=== PATIENT | male | born 1935 | race Caucasian/White ===

== ENCOUNTER 2017-03-23 02:42 | Emergency (ER) | payer OTHER ==
[~2017-03-23] VITALS: Ht 172.7 cm; Wt 119.3 kg
--- NOTE | ~2017-03-23 | EKG ---
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
[~2017-03-23 02:42] MED LIST: ABILIFY 2 MG2 MG PO; ACETAMINOPHEN325 M1 PO; ALDACTONE25 MG PO; AUGMENTIN 875875 MG PO; CALCIUM 500 +1 EAC5 PO; CALCIUM 600 +1 EAC1 PO; CARBIDOPA-LEVO1 EA10 PO; CLARITIN10 MG PO; COLACE100 MG PO; COMTAN200 MG PO; CONSTULOSE10 GM/152 PO; COZAAR 25 MG TA25 MG PO; DEPAKOTE125 MG PO; DEPAKOTE500 MG PO; DIVALPROEX SOD500 MG PO; DUONEB 2.5-0.5 M3 ML INH; FERRO-TIME325 MG PO; FISH OIL 1,001000 M2 PO; FISHOIL; FUROSEMIDE 40 M40 M1 PO; K-DUR10 ME1 PO; KEFLEX500 MG PO; KEPPRA 500 MG500 M1 PO; LASIX 40 MG TAB40 M2 PO; LEVAQUIN 500 M500 M2 PO; MAGNESIUM OXID400 MG PO; MILK OF MAGNESIA; MOM PO; MULTI VITAMIN1 EACH PO; NORVASC10 MG PO; NORVASC5 MG PO; NYSTATIN1 EA10 TOP; ONDANSETRON ODT4 MG PO; ORAZINC220 MG PO; OS-CAL 500+D C1 EACH PO; PAXIL10 MG; PEPCID20 MG PO; PROCEL; REMERON15 M1 PO; RISPERDAL 1 MG T1 MG PO; RISPERDAL1 MG/1 ML PO; SEROQUEL XR150 M1 PO; TUMS PO; TYLENOL325 MG PO; VICODIN 5-5001 EACH PO; VITAMIN B-12500 MCG PO; VITAMIN D1000 UNI1 PO; ZANTAC 150MG T150 MG PO; ZYPREXA5 MG PO; ZYRTEC10 M2 PO; [UNRECOGNIZED DRUG - OTHER]
[2017-03-23 03:04] LABS: URINE BILIRUBIN NEGATIVE (Negative); URINE BLOOD NEGATIVE (Negative); URINE COLOR YELLOW; URINE GLUCOSE-RANDOM* NEGATIVE (Negative); URINE KETONES NEGATIVE (Negative); URINE LEUKOCYTES-REFLEX NEGATIVE (Negative); URINE PROTEIN (DIPSTICK) NEGATIVE (Negative); URINE SPECIFIC GRAVITY 1.015 (1.003-1.035); URINE UROBILINOGEN 0.2 E.U./dl (0.2-1.0)
[2017-03-23] MEDS ORDERED: FLEXERIL PO (03:06)
[2017-03-23] MEDS ORDERED: NORCO 5-325 TA1 EACH PO (03:06)
[2017-03-23] MEDS ORDERED: IBUPROFEN 600600 M1 PO (03:06)
[2017-03-23 03:23] LABS: ABSOLUTE NEUTROPHILS 2.7 thou/uL (1.4-8.2); BASOPHILS 0.8 % (0.0-2.0); EOSINOPHILS 3.2 % (0.0-3.0); HEMATOCRIT 37.3 % (42.0-52.0); HEMOGLOBIN 12.9 gm/dL (14.0-18.0); LYMPHOCYTES 40.3 % (24.0-44.0); MANUAL DIFF NO; MCH 33.2 pg (26.0-34.0); MCHC 34.7 g/dL (28.0-37.0); MCV 95.7 fL (80.0-100.0); MONOCYTES 10.6 % (1.0-8.0); PLATELET COUNT 174 thou/uL (150-400); POLYS 45.1 % (36.0-66.0); RBC 3.89 mil/uL (4.50-6.00); RDW 12.5 % (10.5-14.5); WBC 5.9 thou/uL (4.0-11.0)
[2017-03-23 03:33] LABS: ANION GAP 9 mmol/L (7-16); BUN 15 mg/dL (7-18); CALCIUM 8.8 mg/dL (8.5-10.1); CHLORIDE 102 mmol/L (98-107); CO2 28 mmol/L (21-32); CREATININE 1.3 mg/dL (0.7-1.3); GLUCOSE 107 mg/dL (74-106); POTASSIUM 3.9 mmol/L (3.5-5.1); SODIUM 139 mmol/L (136-145)
[2017-03-23 03:36] LABS: APTT 27.5 Seconds (24.5-32.8); PROTIME 10.7 Seconds (9.3-11.4)
[2017-03-23 03:43] LABS: ALBUMIN 2.9 g/dL (3.4-5.0); ALKALINE PHOSPHATASE 105 U/L (46-116); MAGNESIUM 1.9 mg/dL (1.8-2.4); NT-PRO BRAIN NAT PEPTIDE 317 pg/mL (<300); SGOT 17 U/L (15-37); SGPT 13 U/L (30-65); TOTAL BILIRUBIN 0.4 mg/dL (<0.1-1.0); TOTAL PROTEIN 7.1 g/dL (6.4-8.2); TROPONIN-I < 0.04 ng/mL (<0.04-0.07)
== END 2017-03-23 04:25 | disposition home or self-care (01) ==
LOC: ER 02:42
PROVIDERS: Emergency Medicine
DX: R41.82 Altered mental status, unspecified (principal); G20 Parkinson's disease; F02.80 Dementia in other diseases classified elsewhere, unspecified severity, without behavioral disturbance, psychotic disturbance, mood disturbance, and anxiety; F20.89 Other schizophrenia; I10 Essential (primary) hypertension; E78.5 Hyperlipidemia, unspecified; K21.9 Gastro-esophageal reflux disease without esophagitis

== ENCOUNTER 2017-03-28 22:07 | Emergency (ER) | payer OTHER ==
[~2017-03-28] VITALS: Ht 172.7 cm; Wt 120.2 kg
--- NOTE | ~2017-03-28 | EKG ---
[place] [address] 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 03/29/17 09 21 21 Carlitos Vaughn MD, FACC /EPI
[~2017-03-28 22:07] MED LIST changes: +FLEXERIL PO; +IBUPROFEN 600600 M1 PO; +NORCO 5-325 TA1 EACH PO
[2017-03-29 01:18] LABS: CALCIUM 8.6 mg/dL (8.5-10.1); CREATININE 1.2 mg/dL (0.7-1.3); POTASSIUM 4.2 mmol/L (3.5-5.1)
[2017-03-29 01:22] LABS: ALBUMIN 2.5 g/dL (3.4-5.0); TOTAL BILIRUBIN 0.3 mg/dL (<0.1-1.0); TOTAL PROTEIN 6.4 g/dL (6.4-8.2)
[2017-03-29 02:05] LABS: MCH 33.7 pg (26.0-34.0); MCHC 34.2 g/dL (28.0-37.0); MCV 98.5 fL (80.0-100.0); PLATELET COUNT 165 thou/uL (150-400); RBC 3.85 mil/uL (4.50-6.00); RDW 12.7 % (10.5-14.5); WBC 8.4 thou/uL (4.0-11.0)
[2017-03-29 02:13] LABS: MANUAL DIFF YES
[2017-03-29 02:47] LABS: ABSOLUTE NEUTROPHILS 3.3 thou/uL (1.4-8.2); METAMYELOCYTES 1 %; POLYCHROMASIA 1+; TOTAL CELL COUNT 100
[2017-03-29 02:58] LABS: URINE BILIRUBIN NEGATIVE (Negative); URINE BLOOD NEGATIVE (Negative); URINE COLOR YELLOW; URINE GLUCOSE-RANDOM* NEGATIVE (Negative); URINE KETONES 1+ (Negative); URINE LEUKOCYTES-REFLEX NEGATIVE (Negative); URINE PROTEIN (DIPSTICK) NEGATIVE (Negative); URINE SPECIFIC GRAVITY 1.015 (1.003-1.035)
[2017-03-29] MEDS ORDERED: ONDANSETRON HCL4 M2 PO (04:35)
== END 2017-03-29 05:29 | disposition home or self-care (01) ==
LOC: ER 22:07
PROVIDERS: Emergency Medicine
DX: R11.10 Vomiting, unspecified (principal); I10 Essential (primary) hypertension; G20 Parkinson's disease; E78.5 Hyperlipidemia, unspecified; K21.9 Gastro-esophageal reflux disease without esophagitis; F25.9 Schizoaffective disorder, unspecified; G62.9 Polyneuropathy, unspecified; H35.30 Unspecified macular degeneration; K59.09 Other constipation; Z86.2 Personal history of diseases of the blood and blood-forming organs and certain disorders involving the immune mechanism

== ENCOUNTER 2018-04-04 22:45 | Inpatient (IN) | payer OTHER ==
[~2018-04-04] VITALS: Ht 182.9 cm; Wt 109.7 kg
--- NOTE | ~2018-04-04 | EKG ---
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1935 Requested By: Pooja Lombardi Order Number: [id number] MD: Carlitos Vaughn Measurements Intervals [place] Rate: 107 P: 22 [place]: 128 QRS: -28 QRSD: 124 T: 65 QT: 308 QTc: 411 Interpretive Statements Sinus tachycardia with atrial premature complexes Right bundle branch block Compared to ECG 03/28/2017 22:22:25 Atrial premature complexes are now present Electronically Signed On 04-05-2018 7:56:09 CDT by Carlitos Vaughn [email or web address] <ELECTRONICALLY SIGNED> By: Carlitos Vaughn MD, [facility] 04/05/18 0756 2254 2254 Carlitos Vaughn MD, [facility] /EPI
--- NOTE | ~2018-04-04 | EEG ---
[facility] [place] [address] ELECTROENCEPHALOGRAM Name: ANDRE SILVESTRE Room #: 354-P ADM IN M.R.#: [id number] Admission: 04/04/18 Attend Phys: Alistair Kowalski MD Discharge: Date of : 37 Report #: [id number] THIS REPORT FOR: //name// CC: Alistair Oliva DATE OF SERVICE: 04/05/2018 This patient is being evaluated for altered mental status. EEG was done by placing the electrodes by standard 10-20 system of electrode placement. Both referential and sequential montages were used for recording. Background activity in this patient's EEG is about 9 Hz and 40 microvolt. It is intermixed with theta range slowing throughout the record. On part of the EEG, it may be more slow and that may indicate drowsiness. Photic stimulation is unremarkable. Throughout the record, no active epileptiform activity was noted. IMPRESSION: This patient's EEG is moderately abnormal because it is intermixed with theta range slowing on both sides. That is a nonspecific abnormality, which can occur with encephalopathy, effect of psychotropic medication, dementia, etc. Clinical correlation is recommended. <ELECTRONICALLY SIGNED> By: Jose Cruz Britton MD 04/06/18 1228 1704 1737 Jose Cruz Britton MD /nt
--- NOTE | ~2018-04-04 | HC ---
[facility] [place] [address] CONSULTATION Name: ANDRE SILVESTRE Room #: 354-P ADM IN M.R.#: [id number] Admission: 04/04/18 Attend Phys: Alistair Kowalski MD Discharge: Date of : 37 Report #: [id number] THIS REPORT FOR: //name// CC: Alistair Oliva DATE OF SERVICE: 04/05/2018 ATTENDING PHYSICIAN: Dr. Kowalski. REASON FOR CONSULTATION: Cellulitis, left leg, antibiotic management. HISTORY OF PRESENT ILLNESS: An 82-year-old white man, resident of a local [facility], is admitted through the Emergency Room with altered mental status and cellulitis of left leg. The patient is given Zosyn single dose and subsequently IV vancomycin. The patient apparently at [facility] he had order for PICC and Ancef, unsure if those were taken care of or not. PAST MEDICAL HISTORY: Seizure disorder. Schizoaffective disorder. Hypertension. Parkinson's. Dementia. Neuropathy. Macular degeneration. Chronic constipation. Gastroesophageal reflux. Dyslipidemia. Electrolyte imbalance. Morbid obesity. Previous episode of pneumonia and UTI. Congestive heart failure. Generalized weakness. FAMILY HISTORY: Unable to obtain. SOCIAL HISTORY: Unable to obtain. REVIEW OF SYSTEMS: Unable to obtain. The patient is not arousable. PHYSICAL EXAMINATION: GENERAL: Overweight white man. VITAL SIGNS: Temperature of 101.4 at 2248 hours on 04/04/2018, 97.8 today, pulse 93, respirations 18, BP 130/63, height 6 feet, weight 241.8 pounds. HEENMT: Pupils are equal and reactive. Mouth, unable to examine. Follows no commands. NECK: No palpable masses. LUNGS: Decreased breath sounds. HEART: S1, S2. No gallop. ABDOMEN: Obese, soft, no masses or megaly. GENITALIA AND RECTAL: Deferred. EXTREMITIES: Reveal pretibial edema. He has extensive lesions of cellulitis, left leg and dorsal aspect of left foot. NEUROLOGIC: Unable to evaluate. LABORATORY DATA: Sodium 137, potassium 3.6, chloride 106, BUN 36, creatinine [address] [address] CONSULTATION Name: ANDRE SILVESTRE Room #: 354-P [facility] IN .R.#: [id number] Admission: 04/04/18 Attend Phys: Alistair Kowalski MD Discharge: Date of : 37 Report #: [id number] 1.7, albumin 1.9 g/dL. WBC 8700, hemoglobin 10.1 g/dL, platelets 130,000. His platelet count had been normal on multiple previous occasions before. White blood cell count differential revealed 81% neutrophils. Prealbumin decreased 7.6 mg/dL. TSH normal. Vitamin B12 at 248. Urinalysis negative. Gram stain of the skin lesion revealed no WBCs, moderate gram-positive cocci. RADIOLOGY EVALUATION: The CT scan of the brain revealed atrophy with prominent ventricles and sulci, decreased attenuation in periventricular white matter associated with microvascular ischemic changes. A chest x-ray revealed atelectasis or early pneumonia, left lower lung. ASSESSMENT: 1. Cellulitis, left leg, possible streptococcus versus staphylococcus. 2. Question atelectasis versus pneumonia, left lower lung. 3. Altered mental status secondary to above. 4. Anemia of chronic disease. 5. Severe malnutrition. 6. Schizoaffective disorder. 7. Seizure disorder. SUGGESTIONS: Recommend continue treatment with vancomycin, which will be dosed by pharmacy. We will continue Zosyn 3.37 grams IV every 8 hours for time being for possible pneumonia. Dr. Kowalski, thank you for requesting my suggestions. <ELECTRONICALLY SIGNED> By: Sree Morse MD 04/06/18 1036 1219 2205 Sree Morse MD /nt
[~2018-04-04 22:45] MED LIST changes: +ONDANSETRON HCL4 M2 PO
[2018-04-04 22:48] VITALS: BP 148/77
[2018-04-04 23:17] LABS: ABSOLUTE NEUTROPHILS 7.1 thou/uL (1.4-8.2); BASOPHILS 0.1 % (0.0-2.0); HEMATOCRIT 28.9 % (42.0-52.0); HEMOGLOBIN 10.1 gm/dL (14.0-18.0); LYMPHOCYTES 8.5 % (24.0-44.0); MCH 33.8 pg (26.0-34.0); MCHC 35.1 g/dL (28.0-37.0); MCV 96.3 fL (80.0-100.0); MONOCYTES 9.9 % (1.0-8.0); PLATELET COUNT 130 thou/uL (150-400); POLYS 81.5 % (36.0-66.0); RDW 12.8 % (10.5-14.5); WBC 8.7 thou/uL (4.0-11.0)
[2018-04-04 23:25] LABS: CALCIUM 8.1 mg/dL (8.5-10.1); CREATININE 1.8 mg/dL (0.7-1.3); POTASSIUM 3.6 mmol/L (3.5-5.1)
[2018-04-04 23:27] LABS: URINE BILIRUBIN NEGATIVE (Negative); URINE BLOOD NEGATIVE (Negative); URINE CLARITY CLEAR; URINE COLOR YELLOW; URINE GLUCOSE-RANDOM* NEGATIVE (Negative); URINE KETONES NEGATIVE (Negative); URINE LEUKOCYTES NEGATIVE (Negative); URINE NITRITE NEGATIVE (Negative); URINE PROTEIN (DIPSTICK) NEGATIVE (Negative)
[2018-04-04 23:31] LABS: ALBUMIN 1.9 g/dL (3.4-5.0); TOTAL BILIRUBIN 0.9 mg/dL (<0.1-1.0); TOTAL PROTEIN 5.9 g/dL (6.4-8.2)
[2018-04-05] VITALS (8 sets, daily range): BP systolic 103–151; BP diastolic 55–98
[2018-04-05] MEDS ORDERED: ASPIR 8181 MG PO (00:13)
[2018-04-05] MEDS ORDERED: PROTONIX 20 MG20 M1 PO (00:14)
[2018-04-05] MEDS ORDERED: OCUVITE LUTEIN1 EAC1 PO (00:14)
[2018-04-05] MEDS ORDERED: POTASSIUM20 PO (00:15)
[2018-04-05] MEDS ORDERED: ICAPS AREDS FO1 EACH PO (00:16)
[2018-04-05] MEDS ORDERED: LOPRESSOR25 PO (00:17)
[2018-04-05] MEDS ORDERED: SINEMET 25-2501 EAC1 PO (00:17)
[2018-04-05] MEDS ORDERED: XALATAN2.5 ML OPHTHALMIC (00:18)
[2018-04-05] MEDS ORDERED: CONSTULOSE10 GM/152 PO (00:18)
[2018-04-05] MEDS ORDERED: HALDOL DECAN50 MG/M1 IM (00:19)
[2018-04-05] MEDS ORDERED: IPRATROPIU0.2 MG/1 M INH (00:20)
[2018-04-05] MEDS ORDERED: RISPERDAL0.5 MG PO (00:21)
[2018-04-05] MEDS ORDERED: ANCEF 1GM1 GM/50 M2 IV (00:21)
[2018-04-05] MEDS ORDERED: DEPAKOTE ER500 MG PO (00:22)
[2018-04-05 04:34] LABS: ALBUMIN 1.8 g/dL (3.4-5.0); CALCIUM 8.2 mg/dL (8.5-10.1); CREATININE 1.7 mg/dL (0.7-1.3); POTASSIUM 3.6 mmol/L (3.5-5.1); TOTAL BILIRUBIN 1.2 mg/dL (<0.1-1.0); TOTAL PROTEIN 5.4 g/dL (6.4-8.2)
[2018-04-05 11:38] LABS: TSH 2.456 uIU/mL (0.358-3.740)
[2018-04-05 12:44] LABS: FOLIC ACID 32.3 ng/mL (8.6-58.9)
[2018-04-06 03:06] VITALS: BP 135/79
[2018-04-06 06:12] LABS: CALCIUM 8.2 mg/dL (8.5-10.1); CREATININE 1.1 mg/dL (0.7-1.3)
[2018-04-06 06:14] LABS: POTASSIUM 4.1 mmol/L (3.5-5.1)
[2018-04-06 07:39] LABS: BASOPHILS 0.3 % (0.0-2.0); EOSINOPHILS 0.1 % (0.0-3.0); HEMATOCRIT 26.1 % (42.0-52.0); LYMPHOCYTES 7.6 % (24.0-44.0); MCH 33.7 pg (26.0-34.0); MCHC 34.5 g/dL (28.0-37.0); MCV 97.7 fL (80.0-100.0); MONOCYTES 8.4 % (1.0-8.0); PLATELET COUNT 123 thou/uL (150-400); POLYS 83.6 % (36.0-66.0); RBC 2.68 mil/uL (4.50-6.00); WBC 8.4 thou/uL (4.0-11.0)
[2018-04-06 07:40] VITALS: BP 123/42
[2018-04-06 09:52] LABS: ALBUMIN 1.6 g/dL (3.4-5.0); CALCIUM 8.2 mg/dL (8.5-10.1); CREATININE 1.5 mg/dL (0.7-1.3); MAGNESIUM 2.2 mg/dL (1.8-2.4); POTASSIUM 3.2 mmol/L (3.5-5.1); TOTAL BILIRUBIN 1.2 mg/dL (<0.1-1.0); TOTAL PROTEIN 5.3 g/dL (6.4-8.2)
[2018-04-06 12:00] VITALS: BP 131/49
[2018-04-06 15:45] VITALS: BP 132/58
[2018-04-06 20:15] VITALS: BP 174/80
[2018-04-07 00:02] VITALS: BP 124/62
[2018-04-07 03:15] VITALS: BP 110/70
[2018-04-07 07:43] VITALS: BP 138/55
[2018-04-07 07:48] LABS: ABSOLUTE NEUTROPHILS 5.9 thou/uL (1.4-8.2); BASOPHILS 0.3 % (0.0-2.0); EOSINOPHILS 0.2 % (0.0-3.0); HEMATOCRIT 25.2 % (42.0-52.0); HEMOGLOBIN 8.5 gm/dL (14.0-18.0); LYMPHOCYTES 12.6 % (24.0-44.0); MCH 33.4 pg (26.0-34.0); MCHC 33.9 g/dL (28.0-37.0); MCV 98.6 fL (80.0-100.0); MONOCYTES 9.9 % (1.0-8.0); PLATELET COUNT 160 thou/uL (150-400); RBC 2.56 mil/uL (4.50-6.00); RDW 13.1 % (10.5-14.5); WBC 7.6 thou/uL (4.0-11.0)
[2018-04-07 07:55] LABS: CALCIUM 8.3 mg/dL (8.5-10.1); CREATININE 1.3 mg/dL (0.7-1.3)
[2018-04-07 07:57] LABS: POTASSIUM 2.9 mmol/L (3.5-5.1)
[2018-04-07 11:12] VITALS: BP 128/52
[2018-04-07 15:22] VITALS: BP 138/52
[2018-04-07 20:00] VITALS: BP 130/55
[2018-04-08 06:00] VITALS: BP 127/60
[2018-04-08 07:48] VITALS: BP 130/67
[2018-04-08 10:59] VITALS: BP 136/53
[2018-04-08 15:39] VITALS: BP 155/57
[2018-04-08 20:23] VITALS: BP 132/68
[2018-04-09 04:34] VITALS: BP 132/44
[2018-04-09 08:00] VITALS: BP 139/52
[2018-04-09 09:12] LABS: HEMATOCRIT 23.2 % (42.0-52.0); MCH 33.9 pg (26.0-34.0); MCHC 34.7 g/dL (28.0-37.0); MCV 97.8 fL (80.0-100.0); RBC 2.37 mil/uL (4.50-6.00); RDW 13.3 % (10.5-14.5)
[2018-04-09 09:14] LABS: PLATELET COUNT 235 thou/uL (150-400)
[2018-04-09 09:19] LABS: POTASSIUM 3.5 mmol/L (3.5-5.1)
[2018-04-09 09:44] LABS: ABSOLUTE NEUTROPHILS 7.5 thou/uL (1.4-8.2); METAMYELOCYTES 2 %
[2018-04-09 12:00] VITALS: BP 154/67
[2018-04-09 16:00] VITALS: BP 127/51
[2018-04-09 19:10] VITALS: BP 155/70
[2018-04-10 05:05] VITALS: BP 151/74
[2018-04-10 06:26] LABS: CALCIUM 7.7 mg/dL (8.5-10.1); CREATININE 0.9 mg/dL (0.7-1.3)
[2018-04-10 06:33] LABS: POTASSIUM 4.5 mmol/L (3.5-5.1)
[2018-04-10 07:28] LABS: HEMATOCRIT 23.6 % (42.0-52.0); HEMOGLOBIN 7.9 gm/dL (14.0-18.0); MCH 33.2 pg (26.0-34.0); MCHC 33.6 g/dL (28.0-37.0); MCV 98.6 fL (80.0-100.0); PLATELET COUNT 270 thou/uL (150-400); RBC 2.39 mil/uL (4.50-6.00); RDW 13.3 % (10.5-14.5)
[2018-04-10 09:15] VITALS: BP 145/62
[2018-04-10 09:18] LABS: ABSOLUTE NEUTROPHILS 8.4 thou/uL (1.4-8.2); METAMYELOCYTES 7 %; MYELOCYTES 2 %
[2018-04-10 09:19] LABS: ANISOCYTOSIS SLIGHT; POLYCHROMASIA OCCASIONAL
[2018-04-10] MEDS ORDERED: ROCEPHIN 11 GM/1001 IV (11:52)
== END 2018-04-10 16:41 | DRG 871 ==
LOC: ER 22:45 → 3W 23:45 → EROBS 23:45 → 3W 04-05 00:38
PROVIDERS: Hospitalist; Nurse Practitioner Family; Physician Assistant; Psychiatry & Neurology Neurology; Registered Nurse
DX: A41.9 Sepsis, unspecified organism (principal); G93.40 Encephalopathy, unspecified; E43 Unspecified severe protein-calorie malnutrition; L03.116 Cellulitis of left lower limb; I13.0 Hypertensive heart and chronic kidney disease with heart failure and stage 1 through stage 4 chronic kidney disease, or unspecified chronic kidney disease; H91.90 Unspecified hearing loss, unspecified ear; F25.9 Schizoaffective disorder, unspecified; B96.1 Klebsiella pneumoniae [K. pneumoniae] as the cause of diseases classified elsewhere; B96.4 Proteus (mirabilis) (morganii) as the cause of diseases classified elsewhere; G20 Parkinson's disease; Z66 Do not resuscitate; F02.80 Dementia in other diseases classified elsewhere, unspecified severity, without behavioral disturbance, psychotic disturbance, mood disturbance, and anxiety; E78.5 Hyperlipidemia, unspecified; G40.909 Epilepsy, unspecified, not intractable, without status epilepticus; E66.01 Morbid (severe) obesity due to excess calories; I50.9 Heart failure, unspecified; G62.9 Polyneuropathy, unspecified; H35.30 Unspecified macular degeneration; E86.0 Dehydration; I87.2 Venous insufficiency (chronic) (peripheral); E87.6 Hypokalemia; K21.9 Gastro-esophageal reflux disease without esophagitis; D63.8 Anemia in other chronic diseases classified elsewhere; J44.9 Chronic obstructive pulmonary disease, unspecified; F32.9 Major depressive disorder, single episode, unspecified; N18.9 Chronic kidney disease, unspecified; M19.90 Unspecified osteoarthritis, unspecified site; Z86.73 Personal history of transient ischemic attack (TIA), and cerebral infarction without residual deficits; Z68.32 Body mass index [BMI] 32.0-32.9, adult; Z79.82 Long term (current) use of aspirin; Z79.899 Other long term (current) drug therapy
CPT/HCPCS: 10879

== ENCOUNTER 2018-04-23 17:21 | Inpatient (IN) | payer OTHER ==
[~2018-04-23] VITALS: Ht 182.9 cm; Wt 128.8 kg
--- NOTE | ~2018-04-23 | HC ---
[facility] [place] [address] CONSULTATION Name: ANDRE SILVESTRE Room #: 422-P ADM IN M.R.#: [id number] Admission: 04/23/18 Attend Phys: Lasha Lanier MD Discharge: Date of : 37 Report #: [id number] THIS REPORT FOR: //name// CC: Sandeep Lanier Physician staff DATE OF SERVICE: 04/24/2018 REASON FOR CONSULTATION: Left leg swelling and cellulitis with open wounds of left lower leg and dorsum of left foot and the patient admitted for evaluation of sepsis. HISTORY OF PRESENT ILLNESS: The patient is an obese 82-year-old gentleman suffering from dementia, schizophrenia, parkinsonism and generalized debility and immobility. He is nondiabetic. The patient was admitted for possible sepsis and pneumonia with mental status changes. CT scan showed no evidence of intracranial hemorrhage or other acute intracranial abnormality. Patchy infiltrates have been shown on x-ray. Wound care is consulted due to finding of swelling of his left leg with open draining wounds of the left lower leg pretibial area with cellulitis and a wound on the dorsum of his left foot, left leg and foot appear swollen. The patient cannot give a good history. Left foot x-ray showed no bony changes or evidence of osteomyelitis. PAST MEDICAL HISTORY: Parkinsonism, debility and immobility, schizoaffective disorder, hypertension, history of dementia, history of neuropathy, GERD, hyperlipidemia, history of venous insufficiency, history of depression, history of heart failure. ALLERGIES: No known drug allergies. HOME MEDICATIONS: Include Comtan, milk of magnesia, carbidopa/levodopa, Keppra, aspirin, Protonix, Lopressor, Xalatan, Haldol, Antivert, Risperdal and Depakote. REVIEW OF SYSTEMS: Not obtainable. PHYSICAL EXAMINATION: GENERAL: Shows slightly obtunded but conscious 82-year-old gentleman who is obese. HEENT: Mucous membranes are moist. LUNGS: Respirations are unlabored. ABDOMEN: Soft. EXTREMITIES: Examination of the back shows a superficial partial skin thickness abrasion of his left upper back, measuring 4 x 2 cm without cellulitis. Upper extremities are normal. Examination of the lower extremities shows diffuse swelling and edema of both legs with the left [place] [address] CONSULTATION Name: ANDRE SILVESTRE Room #: 422-P [facility] IN .R.#: [id number] Admission: 04/23/18 Attend Phys: Lasha Lanier MD Discharge: Date of : 37 Report #: [id number] Some mild chronic venous stasis changes of the right leg. Examination of the left leg shows discoloration of the left pretibial area over an area approximately 15 x 8 cm. This is discolored and cellulitic with open wounds x 2, largest measuring 2 x 3 cm with some drainage. Dorsum of the foot is quite swollen with superficial open wound as well. Dorsalis pedis pulses are not palpable. IMPRESSION: 1. Obesity. 2. Dementia. 3. Parkinson's disease. 4. Neuropathy. 5. Debility and immobility. 6. Superficial abrasion of left upper back. 7. Venous stasis with inflammation and ulcer of left leg. 8. Cellulitis of left leg. 9. Lymphedema. PLAN: Ordered a wound culture done of the open draining wounds of the left leg. The patient is currently on IV antibiotics, which will be continued. I have ordered arterial ultrasound of both lower extremities to be sure that arterial supply is sufficient to allow compression. I have also ordered venous ultrasound of both lower legs to rule out DVT, particularly in the left leg. We will treat the wound topically with Silvadene and Xeroform dressings changed twice daily. Once cellulitis has reduced, then compression of the left lower extremity can be considered as therapy to heal the venous stasis ulcerations of the left lower leg. Wound care team will follow. <ELECTRONICALLY SIGNED> By: Tommy Diaz MD 04/25/18 1142 1215 1647 Tommy Diaz MD /nt
--- NOTE | ~2018-04-23 | EKG ---
[address] [address] ELECTROCARDIOGRAM REPORT Name: ANDRE SILVESTRE Room #: 203-P ADM IN M.R.#: [id number] Admission: 04/23/18 Attend Phys: Lasha Lanier MD Discharge: Date of : 37 Report #: [id number] THIS REPORT FOR: //name// 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
--- NOTE | ~2018-04-23 | 2DMMODE ---
[facility] [address] [place] [address] 2 D/M-MODE ECHOCARDIOGRAM Name: ANDRE SILVESTRE Room #: 422-P [facility] IN ..#: [id number] Admission: 04/23/18 Attend Phys: Lasha Lanier MD Discharge: Date of : 39 Date of Service: 04/25/18 1312 Report #: [id number] THIS REPORT FOR: //name// APPROVED REPORT Study performed: 04/25/2018 12:10:20 EXAM: Comprehensive 2D, Doppler, and color-flow Echocardiogram Patient Location: Bedside Room #: [facility] Status: routine BSA: 2.45 HR: 93 bpm BP: 128/60 mmHg Other Information Study Quality: Technically Difficult/Adequate Technically limited study due to body habitus, patient unable to cooperate/patient mental status. Indications COPD Dyspnea Hypertension/HDD 2D Dimensions RVDd: 36.77 mm LVEF(%): 49.98 (>50%) IVSd: 12.90 (7-11mm) LVOT Diam: 22.41 (18-24mm) LVDd: 41.89 mm PWd: 13.13 (7-11mm) LVDs: 31.38 (25-40mm) Aortic Root: 32.22 mm Dumont's LVEF: 49.98 % Volumes Left Atrial Volume (Systole) Single Plane 4CH: 64.77 mL Single Plane 2CH: 60.83 mL LA ESV Index: 27.00 mL/m2 Aortic Valve AoV Peak Doyle.: 1.25 m/s AO Peak Gr.: 6.22 mmHg LVOT Max P.50 mmHg LVOT Max V: 1.06 m/s ELSA Vmax: 3.35 cm2 [facility] [place] [place] [address] 2 D/M-MODE ECHOCARDIOGRAM Name: LOBebeANDRE AlmarazOY Room #: 422-P [facility] IN [facility].#: [id number] Admission: 04/23/18 Attend Phys: Lasha Lanier MD Discharge: Date of : 37 Date of Service: 04/25/18 1312 Report #: [id number] Mitral Valve E/A Ratio: 0.6 MV Decel. Time: 283.26 ms MV E Max Dyole.: 0.95 m/s MV A Doyle.: 1.49 m/s MV PHT: 82.15 ms IVRT: 92.27 ms Pulmonary Valve PV Peak Doyle.: 1.03 m/s PV Peak Gr.: 4.27 mmHg Left Ventricle The left ventricle is normal size. There is normal LV segmental wall motion. There is normal left ventricular wall thickness. The left ventricular systolic function is normal. The left ventricular ejection fraction is within the normal range. LVEF is 55-60%. Grade I - abnormal relaxation pattern. Right Ventricle The right ventricle is normal size. The right ventricular systolic function is normal. Atria The left atrium size is normal. The right atrium size is normal. Aortic Valve The aortic valve is normal in structure. No aortic regurgitation is present. There is no aortic valvular stenosis. Mitral Valve The mitral valve is normal in structure. Trace mitral regurgitation. No evidence of mitral valve stenosis. Tricuspid Valve The tricuspid valve is normal in structure. There is no tricuspid valve regurgitation noted. Unable to assess PA pressure. Pulmonic Valve Pulmonic valve is not well visualized. Great Vessels The aortic root is normal in size. IVC is not visualized. [facility] [address] [place] [address] 2 D/M-MODE ECHOCARDIOGRAM Name: ANDRE SILVESTRE Room #: 422-P [facility] IN M.R.#: [id number] Admission: 04/23/18 Attend Phys: Lasha Lanier MD Discharge: Date of : 39 Date of Service: 04/25/18 1312 Report #: [id number] There is no pericardial effusion. <Conclusion> The left ventricular systolic function is normal. There is normal LV segmental wall motion. LVEF is 55-60%. Mild diastolic dysfunction The aortic valve is normal in structure. No aortic regurgitation or stenosis The mitral valve is normal in structure. Trace mitral regurgitation. Pulmonary artery pressure could not be reliably ascertained There is no pericardial effusion. <ELECTRONICALLY SIGNED> By: Carlitos Vaughn MD, [facility] 04/25/18 1312 11 11 Carlitos Vaughn MD, [facility] /INF
--- NOTE | ~2018-04-23 | HC ---
[facility] [place] [address] CONSULTATION Name: ANDRE SILVESTRE Room #: 422-P ADM IN M.R.#: [id number] Admission: 04/23/18 Attend Phys: Lasha Lanier MD Discharge: Date of : 37 Report #: [id number] THIS REPORT FOR: //name// CC: Sandeep Lanier Physician staff DATE OF SERVICE: 04/24/2018 HISTORY OF PRESENT ILLNESS: An 82-year-old white man known to me from multiple previous hospitalizations at [facility]. He is admitted through the Emergency Room with history of altered mental status and found to have significant anemia for which he received 2 units of packed red cells. His stool is negative for occult blood. GI consultation obtained. The patient is found to have abnormal chest x-ray with bibasilar pulmonary infiltrates, left greater than right. The patient was treated on previous admission for cellulitis of left lower extremity and at present, the left leg and foot definitely improved and the patient is unable to give any significant medical information. Consequently, all information is gathered from the review of his records. DRUG ALLERGIES: None listed. MEDICATIONS: The patient is on treatment with Silvadene topical, left leg; vancomycin 1 gram IV every 8 hours; Zosyn 3.375 grams IV every 8 hours; Levaquin 750 IV daily. He also received Atrovent, albuterol inhalation treatments, pantoprazole, albuterol inhalation treatments, p.r.n. acetaminophen, polyethylene glycol, p.r.n. ondansetron as well as intravenous fluids. PAST MEDICAL HISTORY: Seizure disorder. Schizoaffective disorder. Hypertension. Parkinson's disease. Dementia. Neuropathy. Macular degeneration. Chronic constipation. Gastroesophageal reflux. Electrolyte imbalance. Morbid obesity. Previous episode of pneumonia, UTI. Congestive heart failure. SOCIAL HISTORY: See H and P, old record. FAMILY HISTORY: See H and P, old records. REVIEW OF SYSTEMS: Unable to obtain. PHYSICAL EXAMINATION: GENERAL: Chronically ill-appearing obese man. VITAL SIGNS: Temperature 97.4, pulse 66, respirations 23, BP 116/53 on the date of admission, afebrile through all this hospitalization with hypoxemia requiring supplemental oxygen 2 liters nasal cannula. Weight 279 pounds, height 6 feet. HEENMT: Within range. [address] [address] CONSULTATION Name: ANDRE SILVESTRE Room #: 422-P [facility] IN M.R.#: [id number] Admission: 04/23/18 Attend Phys: Lasha Lanier MD Discharge: Date of : 37 Report #: [id number] NECK: Short, difficult to examine. LUNGS: Basilar crackles, left. HEART: S1, S2. No gallop. ABDOMEN: Obese, soft, no masses or megaly. EXTREMITIES: Swelling both feet. Skin breakdown dorsal aspect of left foot as well as extensive stasis dermatitis, left leg. The cellulitic changes of the left leg have resolved now and the legs are looking definitely better compared to previous admission. NEUROLOGIC: Grossly within normal limits. LABORATORY DATA ON ADMISSION: Sodium 140, potassium 3.7, BUN 14, creatinine 0.9, calcium 7.5, reflecting hypoalbuminemia of 0.9 g/dL. Lactic acid normal. White blood cell count on admission 4600, hemoglobin 5.2 g/dL. Post 2 units of blood red cell transfusion, his hemoglobin raised to 7.6 g/dL. Platelets 299,000. White blood cell count differential revealed 42% segmented neutrophils, 41% lymphocytes, 11% monocytes. MICROBIOLOGY DATA: Blood cultures were obtained on admission in an afebrile patient. Stool negative for occult blood. Cultures of the left foot and leg were obtained yesterday and they revealed presumptive MRSA on the left foot as well as gram-negative organism. The left leg culture revealed many gram-negative rods. Just as a reminder, his previous culture revealed Klebsiella pneumoniae and Proteus mirabilis. RADIOLOGY EVALUATION: A CT scan of the brain, prominent ventricles and sulci consistent with generalized parenchymal volume loss, low attenuation in the periventricular area consistent with lacunar strokes. CT scan obtained on 04/[address] revealed similar findings. The chest x-ray obtained on this admission revealed new changes compatible with pneumonitis in both lung bases, left worse than right. DIAGNOSES: 1. Altered mental status. 2. Bilateral pulmonary infiltrates, left greater than right--healthcare-associated pneumonia. 3. Severe anemia, question gastrointestinal bleeding. 4. Cellulitis, left leg, improved compared to previously. 5. Anasarca. 6. Severe malnutrition. 7. Dementia. SUGGESTIONS: Recommend continue coverage with vancomycin, Zosyn and Levaquin. Local wound care to the left leg. Isolation for MRSA. [address] [address] CONSULTATION Name: ANDRE SILVESTRE Room #: 422-P [facility] IN M.R.#: [id number] Admission: 04/23/18 Attend Phys: Lasha Lanier MD Discharge: Date of : 37 Report #: [id number] Melgoza, thank you for requesting my suggestions in the care of your patients. <ELECTRONICALLY SIGNED> By: Sree Morse MD 04/26/18 0859 1200 0335 Sree Morse MD /nt
--- NOTE | ~2018-04-23 | EKG ---
[address] 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
--- NOTE | ~2018-04-23 | O ---
[address] [address] OPERATIVE REPORT Name: ANDRE SILVESTRE Room #: 422-P ADM IN M.R.#: [id number] Admission: 04/23/18 Attend Phys: Lasha Lanier MD Discharge: Date of : 39 Report #: [id number] THIS REPORT FOR: //name// CC: Sandeep Lanier Physician staff DATE OF SERVICE: 04/29/2018 SERVICE: Orthopedics. FACILITY: [facility]. SURGEON: Howard Smith MD FLAT KNITTER HELPER: None. PREOPERATIVE DIAGNOSES: 1. Left extraarticular distal femur fracture. 2. Anasarca. 3. Left leg venous stasis dermatitis. 4. Left foot dorsal superficial soft tissue wound. POSTOPERATIVE DIAGNOSES: 1. Left extraarticular distal femur fracture. 2. Anasarca. 3. Left leg venous stasis dermatitis. 4. Left foot dorsal superficial soft tissue wound. PROCEDURE: Open reduction and internal fixation with plate and screw implant, left distal femur fracture. ANESTHESIA: General. COMPLICATIONS: None. DRAINS: None. SPECIMENS: None. ESTIMATED BLOOD LOSS: 800 mL. FINDINGS: 1. Synthes 10-hole distal femoral locking plate. 2. Body habitus, including his anasarca, and lower extremity wounds made reduction, positioning and surgical approach more complicated and required [address] [address] OPERATIVE REPORT Name: ANDRE SILVESTRE Room #: 422-P [facility] IN [place]#: [id number] Admission: 04/23/18 Attend Phys: Lasha Lanier MD Discharge: Date of : 39 Report #: [id number] additional preoperative and intraoperative planning and execution. HISTORY: The patient is an 82-year-old gentleman who was noted during vascular study to have a left distal femur fracture. On physical examination, he was clearly experiencing pain related to the fracture and there was risk of impending conversion to an open fracture due to a sharp spike of bone on the medial shaft segment. 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 The risks, benefits, alternatives, and indications for surgery were therefore discussed in detail. Risks include but not limited to pain, bleeding, infection, nonunion, malunion, hardware failure, need for further surgery, wound healing complications as well as need for further surgery such as amputation as well as complications related to anesthesia such as stroke, heart attack, pulmonary complications, thromboembolic disease and . PROCEDURE IN DETAIL: After the left leg was correctly identified as the operative extremity the patient was taken to the operating room, he was transferred to the operating table and general anesthesia was then induced. Prophylactic antibiotics were not required because he has been on a full dose antibiotic regimen. He was padded appropriately. Left leg was prepped and draped in a standard sterile fashion with care taken to be very careful with the additional soft tissue issues that he is having in the leg and the foot. The stockinette was delicately placed over the foot and leg up to the level of the knee and then this was wrapped securely. I then fashioned a custom traction device with a very well-padded Kerlix roll gauze and then extended over a soniya system fashioned off the edge of the table, which provided good traction and restored an adequate amount of length, and then flexed the knee over a trauma triangle and placed a bump under the fracture to address the extension that was present through the metaphyseal fracture line. A time-out procedure was performed prior to incision. Utilizing fluoroscopy in multiple planes we proceeded with internal fixation. A lateral approach was made with full thickness skin flaps developed down to the IT band, which was incised in line with its fibers down to the bone. The bone was visualized and there was noted to be some early soft callus that had been present indicating that this is a remote enough fracture that is unlikely, by my estimation, to have occurred during this particular hospitalization. There was some hematoma that was encountered and this was evacuated out of the wound and the lateral cortex was visualized. The plate was then fixed to the distal segment and then utilizing x-ray on the lateral view, the fracture was flexed to restore the alignment on the shaft and then the 10-hole plate was fixed to the shaft with temporary fixation pin. A compression device was then placed, which yelena the plate down to the bone and provided good alignment, the goal here being minimal disruption of any anterior, medial or posterior soft tissues because [address] [address] OPERATIVE REPORT Name: ANDRE SILVESTRE Room #: 422-P ADM IN M.R.#: [id number] Admission: 04/23/18 Attend Phys: Lasha Lanier MD Discharge: Date of : 39 Report #: [id number] this patient is a non-ambulator and we are looking for fracture stability for pain relief measures and to decrease the chance that that fracture spike penetrate the skin and converted to open. After the plate was fixed to the bone and compressed adequately, I proceeded to provide fixation on to the shaft segment utilizing nonlocking screws x 3 proximally with good spread to distribute the forces and then used a locking screw to purchase the metaphyseal segment and distribute forces across the four screws. After this was completed, final x-rays were taken on AP and lateral to confirm appropriate stable fixation and then the wound was copiously irrigated. Due to the position of the fracture and the soft tissue envelope, I was unable to utilize an intraoperative tourniquet, so we did experience blood loss; however, the patient remained stable throughout the procedure. At the recommendation of Anesthesia, the decision was made to obtain an H and H in the PACU at the conclusion of the procedure. After all wounds were thoroughly irrigated, the deep layer was closed with 0 Vicryl suture in [id number] fashion and then the skin was closed with 2-0 Vicryl followed by nina and a sterile dressing was applied to the left thigh. Xeroform and gauze dressing was applied to the left leg and foot as had been placed prior to today's surgery by the Wound Care Service. At this point, the patient was awakened from anesthesia and taken to recovery room in stable condition. There were no complications and all counts were recorded as correct. <ELECTRONICALLY SIGNED> By: Howard Smith MD 04/29/18 1437 [id number] Howard Smith MD /nt
[2018-04-23 17:21] VITALS: BP 116/53
[~2018-04-23 17:21] MED LIST changes: +ANCEF 1GM1 GM/50 M2 IV; +ASPIR 8181 MG PO; +DEPAKOTE ER500 MG PO; +HALDOL DECAN50 MG/M1 IM; +ICAPS AREDS FO1 EACH PO; +IPRATROPIU0.2 MG/1 M INH; +LOPRESSOR25 PO; +OCUVITE LUTEIN1 EAC1 PO; +POTASSIUM20 PO; +PROTONIX 20 MG20 M1 PO; +RISPERDAL0.5 MG PO; +ROCEPHIN 11 GM/1001 IV; +SINEMET 25-2501 EAC1 PO; +XALATAN2.5 ML OPHTHALMIC
[2018-04-23 19:01] LABS: MCHC 33.6 g/dL (28.0-37.0); MCV 98.2 fL (80.0-100.0); PLATELET COUNT 299 thou/uL (150-400); RBC 1.56 mil/uL (4.50-6.00); WBC 4.6 thou/uL (4.0-11.0)
[2018-04-23 19:05] LABS: HEMATOCRIT 15.4 % (42.0-52.0); HEMOGLOBIN 5.2 gm/dL (14.0-18.0)
[2018-04-23 19:09] LABS: ANION GAP 5 mmol/L (7-16); BUN 14 mg/dL (7-18); CALCIUM 7.5 mg/dL (8.5-10.1); CHLORIDE 109 mmol/L (98-107); CO2 26 mmol/L (21-32); CREATININE 0.9 mg/dL (0.7-1.3); GLUCOSE 74 mg/dL (74-106); POTASSIUM 3.7 mmol/L (3.5-5.1); SODIUM 140 mmol/L (136-145)
[2018-04-23 19:15] LABS: ALBUMIN 0.9 g/dL (3.4-5.0); DIRECT BILIRUBIN 0.3 mg/dL (<0.1-0.3); LIPASE 26 U/L (73-393); SGOT 17 U/L (15-37); TOTAL BILIRUBIN 0.6 mg/dL (<0.1-1.0); TOTAL PROTEIN 5.8 g/dL (6.4-8.2)
[2018-04-23 19:23] LABS: ABSOLUTE NEUTROPHILS 2.1 thou/uL (1.4-8.2)
[2018-04-23 19:35] LABS: SGPT < 6 U/L (30-65)
[2018-04-23 20:51] LABS: ABSOLUTE RETIC COUNT 0.1025 10^6/uL
[2018-04-23 20:53] LABS: % SATURATION 39 % (20-39); IRON 22 ug/dL (65-175); TIBC 57 ug/dL (250-450)
[2018-04-23 20:54] LABS: OBSERVED RETIC COUNT 6.58 % (0.6-2.6)
[2018-04-23 21:21] LABS: FOLIC ACID 16.6 ng/mL (8.6-58.9)
[2018-04-23 21:30] VITALS: BP 131/69
[2018-04-24 01:56] LABS: URINE BILIRUBIN NEGATIVE (Negative); URINE BLOOD NEGATIVE (Negative); URINE CLARITY CLEAR; URINE COLOR YELLOW; URINE GLUCOSE-RANDOM* NEGATIVE (Negative); URINE KETONES TRACE (Negative); URINE LEUKOCYTES-REFLEX NEGATIVE (Negative); URINE NITRITE-REFLEX NEGATIVE (Negative); URINE PROTEIN (DIPSTICK) NEGATIVE (Negative); URINE UROBILINOGEN 0.2 E.U./dl (0.2-1.0)
[2018-04-24 03:18] VITALS: BP 131/69
[2018-04-24 03:41] VITALS: BP 129/76; BP 149/54
[2018-04-24 07:45] VITALS: BP 149/54
[2018-04-24 08:04] LABS: WBC 4.3 thou/uL (4.0-11.0)
[2018-04-24 08:05] LABS: HEMOGLOBIN 6.6 gm/dL (14.0-18.0); MCH 32.4 pg (26.0-34.0); MCHC 34.7 g/dL (28.0-37.0); MCV 93.5 fL (80.0-100.0); RBC 2.03 mil/uL (4.50-6.00)
[2018-04-24 08:12] LABS: HEMATOCRIT 19.2 % (42.0-52.0)
[2018-04-24 08:21] LABS: CALCIUM 7.6 mg/dL (8.5-10.1); POTASSIUM 3.7 mmol/L (3.5-5.1); TOTAL BILIRUBIN 0.6 mg/dL (<0.1-1.0); TOTAL PROTEIN 6.1 g/dL (6.4-8.2)
[2018-04-24 15:24] VITALS: BP 123/67; BP 129/55; BP 154/66
[2018-04-24 16:01] VITALS: BP 123/67
[2018-04-24 19:50] VITALS: BP 136/52
[2018-04-25 00:21] VITALS: BP 110/42
[2018-04-25 03:50] VITALS: BP 116/54
[2018-04-25 06:35] LABS: HEMOGLOBIN 7.6 gm/dL (14.0-18.0); MCH 32.6 pg (26.0-34.0); MCHC 34.6 g/dL (28.0-37.0); PLATELET COUNT 248 thou/uL (150-400); RBC 2.34 mil/uL (4.50-6.00); RDW 15.9 % (10.5-14.5)
[2018-04-25 07:01] LABS: CALCIUM 7.5 mg/dL (8.5-10.1); CREATININE 1.1 mg/dL (0.7-1.3); POTASSIUM 3.8 mmol/L (3.5-5.1)
[2018-04-25 07:24] VITALS: BP 128/60
[2018-04-25 07:32] LABS: ABSOLUTE NEUTROPHILS 2.9 thou/uL (1.4-8.2); POLYCHROMASIA 2+
[2018-04-25 07:33] LABS: ANISOCYTOSIS 1+; HYPOCHROMASIA 2+
[2018-04-25 19:30] VITALS: BP 105/60
[2018-04-26 01:47] LABS: HEMATOCRIT 21.7 % (42.0-52.0); HEMOGLOBIN 7.1 gm/dL (14.0-18.0); MCH 31.7 pg (26.0-34.0); MCHC 32.9 g/dL (28.0-37.0); MCV 96.3 fL (80.0-100.0); PLATELET COUNT 232 thou/uL (150-400); RBC 2.25 mil/uL (4.50-6.00); RDW 16.4 % (10.5-14.5); WBC 5.5 thou/uL (4.0-11.0)
[2018-04-26 02:03] LABS: ABSOLUTE NEUTROPHILS 2.8 thou/uL (1.4-8.2); PLATELET ESTIMATE NORMAL
[2018-04-26 04:41] VITALS: BP 90/40
[2018-04-26 07:20] VITALS: BP 121/56
[2018-04-26 19:55] VITALS: BP 129/48
[2018-04-27 05:55] LABS: HEMOGLOBIN 8.3 gm/dL (14.0-18.0); MCH 31.7 pg (26.0-34.0); MCHC 33.2 g/dL (28.0-37.0); MCV 95.5 fL (80.0-100.0); PLATELET COUNT 243 thou/uL (150-400); RBC 2.61 mil/uL (4.50-6.00); RDW 15.9 % (10.5-14.5); WBC 5.8 thou/uL (4.0-11.0)
[2018-04-27 06:04] LABS: CALCIUM 7.7 mg/dL (8.5-10.1); CREATININE 1.2 mg/dL (0.7-1.3); POTASSIUM 3.7 mmol/L (3.5-5.1)
[2018-04-27 06:47] LABS: ABSOLUTE NEUTROPHILS 2.9 thou/uL (1.4-8.2)
[2018-04-27 09:29] VITALS: BP 148/86
[2018-04-27 17:56] VITALS: BP 130/65
[2018-04-27 20:00] VITALS: BP 129/51
[2018-04-28 04:46] VITALS: BP 123/57
[2018-04-28 08:00] VITALS: BP 115/54
[2018-04-28 09:31] LABS: CALCIUM 7.6 mg/dL (8.5-10.1); CREATININE 1.2 mg/dL (0.7-1.3); POTASSIUM 3.9 mmol/L (3.5-5.1)
[2018-04-28 11:05] LABS: HEMATOCRIT 29.6 % (42.0-52.0); RBC 3.07 mil/uL (4.50-6.00)
[2018-04-28 11:07] LABS: HEMOGLOBIN 9.9 gm/dL (14.0-18.0); MCH 32.3 pg (26.0-34.0); MCHC 33.5 g/dL (28.0-37.0); MCV 96.4 fL (80.0-100.0); RDW 16.5 % (10.5-14.5)
[2018-04-28 12:51] LABS: ANISOCYTOSIS 1+; METAMYELOCYTES 2 %; MYELOCYTES 3 %
[2018-04-28 12:52] LABS: PLATELET COUNT 239 thou/uL (150-400); POLYCHROMASIA SLIGHT
[2018-04-28 16:30] VITALS: BP 152/70
[2018-04-28 20:00] VITALS: BP 125/83
[2018-04-29] VITALS (13 sets, daily range): BP systolic 11–121; BP diastolic 45–73
[2018-04-29 10:43] LABS: HEMATOCRIT 24.1 % (42.0-52.0); HEMOGLOBIN 8.1 gm/dL (14.0-18.0); MCH 32.6 pg (26.0-34.0); MCHC 33.6 g/dL (28.0-37.0); MCV 97.1 fL (80.0-100.0); PLATELET COUNT 225 thou/uL (150-400); RBC 2.48 mil/uL (4.50-6.00); RDW 16.6 % (10.5-14.5)
[2018-04-29 10:50] LABS: CALCIUM 8.1 mg/dL (8.5-10.1); CREATININE 1.1 mg/dL (0.7-1.3); POTASSIUM 3.3 mmol/L (3.5-5.1)
[2018-04-29 11:18] LABS: ABSOLUTE NEUTROPHILS 2.5 thou/uL (1.4-8.2); ANISOCYTOSIS 1+
[2018-04-29 14:09] LABS: HEMATOCRIT 22.1 % (42.0-52.0); HEMOGLOBIN 7.6 gm/dL (14.0-18.0)
[2018-04-29 18:40] LABS: MCV 96.7 fL (80.0-100.0); RBC 1.94 mil/uL (4.50-6.00); WBC 8.1 thou/uL (4.0-11.0)
[2018-04-29 18:42] LABS: MCH 32.6 pg (26.0-34.0); MCHC 33.7 g/dL (28.0-37.0); RDW 16.5 % (10.5-14.5)
[2018-04-29 18:47] LABS: HEMATOCRIT 18.7 % (42.0-52.0); HEMOGLOBIN 6.3 gm/dL (14.0-18.0)
[2018-04-29 19:15] LABS: MCH 32.4 pg (26.0-34.0); MCHC 33.8 g/dL (28.0-37.0); MCV 95.8 fL (80.0-100.0); RBC 1.96 mil/uL (4.50-6.00); RDW 16.3 % (10.5-14.5); WBC 8.1 thou/uL (4.0-11.0)
[2018-04-29 19:16] LABS: HEMATOCRIT 18.8 % (42.0-52.0); HEMOGLOBIN 6.4 gm/dL (14.0-18.0)
[2018-04-30] VITALS (7 sets, daily range): BP systolic 108–132; BP diastolic 40–73
[2018-04-30 00:52] LABS: MCH 31.8 pg (26.0-34.0); MCV 92.3 fL (80.0-100.0); WBC 7.1 thou/uL (4.0-11.0)
[2018-04-30 00:53] LABS: HEMOGLOBIN 6.7 gm/dL (14.0-18.0); MCHC 34.4 g/dL (28.0-37.0); RBC 2.11 mil/uL (4.50-6.00)
[2018-04-30 01:00] LABS: HEMATOCRIT 19.5 % (42.0-52.0)
[2018-04-30 06:32] LABS: HEMATOCRIT 22.8 % (42.0-52.0); MCH 32.2 pg (26.0-34.0); MCHC 35.1 g/dL (28.0-37.0); MCV 91.7 fL (80.0-100.0); PLATELET COUNT 193 thou/uL (150-400); RBC 2.48 mil/uL (4.50-6.00); RDW 16.8 % (10.5-14.5); WBC 8.3 thou/uL (4.0-11.0)
[2018-04-30 06:39] LABS: CREATININE 1.4 mg/dL (0.7-1.3); POTASSIUM 3.4 mmol/L (3.5-5.1)
[2018-04-30 08:22] LABS: ABSOLUTE NEUTROPHILS 5.7 thou/uL (1.4-8.2); ANISOCYTOSIS 1+
[2018-04-30 08:23] LABS: SCHISTOCYTES OCCASIONAL
[2018-04-30 15:36] LABS: HEMATOCRIT 20.6 % (42.0-52.0); HEMOGLOBIN 7.1 gm/dL (14.0-18.0)
[2018-04-30 23:16] LABS: HEMATOCRIT 22.4 % (42.0-52.0); HEMOGLOBIN 7.7 gm/dL (14.0-18.0)
[2018-05-01 00:12] VITALS: BP 137/45
[2018-05-01 05:55] VITALS: BP 146/93
[2018-05-01 07:00] LABS: HEMATOCRIT 22.8 % (42.0-52.0); HEMOGLOBIN 7.7 gm/dL (14.0-18.0); MCH 31.6 pg (26.0-34.0); PLATELET COUNT 197 thou/uL (150-400); RBC 2.45 mil/uL (4.50-6.00); RDW 17.7 % (10.5-14.5); WBC 10.1 thou/uL (4.0-11.0)
[2018-05-01 07:03] LABS: CALCIUM 7.8 mg/dL (8.5-10.1); CREATININE 1.3 mg/dL (0.7-1.3); POTASSIUM 3.1 mmol/L (3.5-5.1)
[2018-05-01 07:44] VITALS: BP 141/67
[2018-05-01 08:18] LABS: ABSOLUTE NEUTROPHILS 6.1 thou/uL (1.4-8.2); ANISOCYTOSIS 1+; METAMYELOCYTES 1 %; MYELOCYTES 1 %
[2018-05-01 11:39] VITALS: BP 122/64
[2018-05-01 15:09] VITALS: BP 115/53
[2018-05-01 19:22] VITALS: BP 117/53
[2018-05-02 04:03] VITALS: BP 129/49
[2018-05-02 05:20] LABS: ABSOLUTE NEUTROPHILS 10.5 thou/uL (1.4-8.2); BASOPHILS 0.4 % (0.0-2.0); EOSINOPHILS 0.3 % (0.0-3.0); HEMATOCRIT 21.6 % (42.0-52.0); HEMOGLOBIN 7.2 gm/dL (14.0-18.0); LYMPHOCYTES 18.9 % (24.0-44.0); MCH 31.5 pg (26.0-34.0); MCHC 33.2 g/dL (28.0-37.0); MCV 94.8 fL (80.0-100.0); PLATELET COUNT 176 thou/uL (150-400); POLYS 71.4 % (36.0-66.0); RBC 2.28 mil/uL (4.50-6.00); RDW 17.3 % (10.5-14.5); WBC 14.6 thou/uL (4.0-11.0)
[2018-05-02 05:51] LABS: CALCIUM 7.7 mg/dL (8.5-10.1); CREATININE 1.3 mg/dL (0.7-1.3); POTASSIUM 3.9 mmol/L (3.5-5.1)
[2018-05-02 08:01] VITALS: BP 133/98
[2018-05-02 15:46] VITALS: BP 115/48
[2018-05-02 19:42] VITALS: BP 130/56
[2018-05-03 03:49] VITALS: BP 106/40
[2018-05-03 05:45] LABS: RBC 1.91 mil/uL (4.50-6.00); RDW 17.3 % (10.5-14.5)
[2018-05-03 05:47] LABS: MCH 32.2 pg (26.0-34.0); MCV 94.8 fL (80.0-100.0)
[2018-05-03 05:50] LABS: HEMATOCRIT 18.1 % (42.0-52.0); HEMOGLOBIN 6.2 gm/dL (14.0-18.0)
[2018-05-03 05:53] LABS: CREATININE 1.3 mg/dL (0.7-1.3); POTASSIUM 3.8 mmol/L (3.5-5.1)
[2018-05-03 07:55] VITALS: BP 108/55
[2018-05-03 09:04] VITALS: BP 127/48; BP 141/53
[2018-05-03] MEDS ORDERED: LASIX 40 MG TAB40 M1 PO (12:02)
[2018-05-03 14:14] LABS: HEMATOCRIT 21.5 % (42.0-52.0); HEMOGLOBIN 7.3 gm/dL (14.0-18.0)
== END 2018-05-03 17:17 | disposition hospice, home (50) | DRG 981 ==
LOC: ER 17:21 → 4E 20:13 → EROBS 20:13 → 4E 22:07 → 2N 04-29 15:16
PROVIDERS: Hospitalist; Nurse Practitioner; Nurse Practitioner Family; Orthopaedic Surgery Sports Medicine
DX: J69.0 Pneumonitis due to inhalation of food and vomit (principal); E43 Unspecified severe protein-calorie malnutrition; A41.9 Sepsis, unspecified organism; S72.402A Unspecified fracture of lower end of left femur, initial encounter for closed fracture; I13.0 Hypertensive heart and chronic kidney disease with heart failure and stage 1 through stage 4 chronic kidney disease, or unspecified chronic kidney disease; L03.116 Cellulitis of left lower limb; L97.829 Non-pressure chronic ulcer of other part of left lower leg with unspecified severity; S20.412A Abrasion of left back wall of thorax, initial encounter; H91.90 Unspecified hearing loss, unspecified ear; F25.9 Schizoaffective disorder, unspecified; G20 Parkinson's disease; I87.2 Venous insufficiency (chronic) (peripheral); F02.80 Dementia in other diseases classified elsewhere, unspecified severity, without behavioral disturbance, psychotic disturbance, mood disturbance, and anxiety; E78.5 Hyperlipidemia, unspecified; G62.9 Polyneuropathy, unspecified; E66.9 Obesity, unspecified; H35.30 Unspecified macular degeneration; I50.9 Heart failure, unspecified; K21.9 Gastro-esophageal reflux disease without esophagitis; J44.9 Chronic obstructive pulmonary disease, unspecified; D50.9 Iron deficiency anemia, unspecified; B95.62 Methicillin resistant Staphylococcus aureus infection as the cause of diseases classified elsewhere; I73.9 Peripheral vascular disease, unspecified; F32.9 Major depressive disorder, single episode, unspecified; N18.9 Chronic kidney disease, unspecified; M19.90 Unspecified osteoarthritis, unspecified site; Z68.38 Body mass index [BMI] 38.0-38.9, adult; X58.XXXA Exposure to other specified factors, initial encounter; Y93.89 Activity, other specified; Y92.89 Other specified places as the place of occurrence of the external cause; Y99.8 Other external cause status; Z86.73 Personal history of transient ischemic attack (TIA), and cerebral infarction without residual deficits; Z79.82 Long term (current) use of aspirin; Z79.899 Other long term (current) drug therapy
CPT/HCPCS: 10081; 10183; 50101; 50386; 51412; 55430; 56528; 57091; 62110; 62900; 70005

== ENCOUNTER 2018-05-30 20:58 | Emergency (ER) | payer OTHER ==
[~2018-05-30] VITALS: Ht 170.2 cm; Wt 86.2 kg
[~2018-05-30 20:58] MED LIST changes: +LASIX 40 MG TAB40 M1 PO
== END 2018-05-31 01:23 | disposition home or self-care (01) ==
LOC: ER 20:58
DX: S40.012A Contusion of left shoulder, initial encounter (principal); W06.XXXA Fall from bed, initial encounter; Y93.89 Activity, other specified; Y92.89 Other specified places as the place of occurrence of the external cause; Y99.8 Other external cause status; E78.5 Hyperlipidemia, unspecified; K21.9 Gastro-esophageal reflux disease without esophagitis; J44.9 Chronic obstructive pulmonary disease, unspecified; I12.9 Hypertensive chronic kidney disease with stage 1 through stage 4 chronic kidney disease, or unspecified chronic kidney disease; N18.9 Chronic kidney disease, unspecified; I11.0 Hypertensive heart disease with heart failure; I50.9 Heart failure, unspecified; F32.9 Major depressive disorder, single episode, unspecified; G20 Parkinson's disease; F02.80 Dementia in other diseases classified elsewhere, unspecified severity, without behavioral disturbance, psychotic disturbance, mood disturbance, and anxiety